=== PATIENT | male | born 1935 | race Caucasian/White ===

== ENCOUNTER 2017-09-19 19:03 | Emergency (ER) | payer MEDICARE, OTHER ==
[~2017-09-19] VITALS: Ht 180.3 cm; Wt 81.0 kg
[~2017-09-19 19:03] MED LIST: COREG3.125 MG PO; JANUMET1 TAB PO; LEVOTHROID75 MCG PO; NOVOLIN 70/30 SC
[2017-09-19 20:05] VITALS: BP 145/77
== END 2017-09-19 20:05 | disposition home or self-care (01) ==
LOC: ED 19:03
PROC: 0HQGXZZ Repair Left Hand Skin, External Approach (ICD-10-PCS; principal; 2017-09-19)
DX: S61.221A Laceration with foreign body of left index finger without damage to nail, initial encounter (principal); W26.0XXA Contact with knife, initial encounter; Y93.G3 Activity, cooking and baking; Y92.009 Unspecified place in unspecified non-institutional (private) residence as the place of occurrence of the external cause

== ENCOUNTER 2017-09-26 11:54 | Emergency (ER) | payer MEDICARE, OTHER ==
[~2017-09-26] VITALS: Ht 180.3 cm; Wt 75.0 kg
[2017-09-26 13:17] VITALS: BP 134/83
== END 2017-09-26 13:17 | disposition home or self-care (01) ==
LOC: ED 11:54
DX: S61.221D Laceration with foreign body of left index finger without damage to nail, subsequent encounter (principal)

== ENCOUNTER 2017-10-18 09:12 | Emergency (ER) | payer MEDICARE, OTHER ==
[~2017-10-18] VITALS: Ht 180.3 cm; Wt 85.0 kg
[2017-10-18 09:59] VITALS: BP 133/77
[2017-10-18] MEDS ORDERED: MEDDOSEPAK PO (10:30)
[2017-10-18] MEDS ORDERED: ULTRAM50 M1 PO (10:30)
== END 2017-10-18 10:40 | disposition home or self-care (01) ==
LOC: ED 09:12
DX: S39.012A Strain of muscle, fascia and tendon of lower back, initial encounter (principal); M54.32 Sciatica, left side; I10 Essential (primary) hypertension; X50.0XXA Overexertion from strenuous movement or load, initial encounter

== ENCOUNTER 2018-06-03 23:48 | Observation (INO) | payer MEDICARE, OTHER ==
[~2018-06-03] VITALS: Ht 180.3 cm; Wt 83.0 kg
[~2018-06-03 23:48] MED LIST changes: -LEVOTHROID75 MCG PO; +LEVOTHYROXIN88 MC1 PO; +MEDDOSEPAK PO; +ULTRAM50 M1 PO
--- NOTE | 2018-06-03 23:49 | NUR ---
PATIENT TO TREATMENT AREA VIA WHEELCHAIR FOR BEDSIDE TRIAGE. PATIENT PLACED ON MONITOR. DENIES SOB OR CHEST PAIN AT PRESENT. AWAAUDELIA GODINEZ.
[2018-06-04 00:45] LABS: HEMATOCRIT 46.1 % (39.0-50.0); HEMOGLOBIN 15.1 g/dl (14.0-18.0); IMMATURE GRANULOCYTES 0.2 % (0.0-5.0); MEAN CELL VOLUME 84.3 fL CALC (80.0-100.0); MEAN CORPUSCULAR HGB 27.6 pG CALC (26.0-32.0); MEAN CORPUSCULAR HGB CONC 32.8 g/L CALC (32.0-36.0); NEUT# 1.85 thou/uL (1.82-7.42); RED BLOOD COUNT 5.47 mill/uL (4.70-6.10); RED CELL DISTRI WIDTH 13.3 % (11.5-15.5)
[2018-06-04 01:05] LABS: URINE BILIRUBIN - DIPSTICK NEGATIVE (NEGATIVE); URINE BLOOD DIPSTICK NEGATIVE (NEGATIVE); URINE CLARITY CLEAR; URINE COLOR YELLOW; URINE GLUCOSE - DIPSTICK >=1000 mg/dL (NEGATIVE); URINE KETONE NEGATIVE (NEGATIVE); URINE LEUK ESTERASE NEGATIVE (NEGATIVE); URINE NITRITE - DIPSTICK NEGATIVE (Negative); URINE PROTEIN - DIPSTICK NEGATIVE (NEG-TRACE); URINE SPECIFIC GRAVITY 1.015; URINE UROBILINOGEN - DIPSTICK 0.2 E.U./dL (0.2)
[2018-06-04 01:09] LABS: ALBUMIN 3.9 g/dL (3.2-5.0); ANION GAP 12 (6-22 (CALC)); BILIRUBIN, TOTAL 0.7 mg/dL (0.0-1.4); BUN 24 mg/dL (8-23); BUN/CREATININE RATIO 20 (12-20 (CALC)); CARBON DIOXIDE 29 mmol/l (22-30); CHLORIDE 103 mmol/l (95-108); CREATININE 1.2 mg/dL (0.7-1.3); GFR 58 ML/MIN (>=60 (CALC)); GFR FOR AFR.AMER. > 60 ML/MIN (>=60 (CALC)); POTASSIUM 4.7 mmol/l (3.5-5.1); SGOT/AST 32 u/l (19-48); SODIUM 140 mmol/l (137-146); TOTAL PROTEIN 6.9 g/dL (6.3-8.2)
[2018-06-04 01:18] LABS: ALKALINE PHOSPHATASE 98 u/l (38-126)
[2018-06-04 01:20] LABS: MYOGLOBIN 145 ng/mL (0 - 121)
--- NOTE | 2018-06-04 02:00 | NUR ---
RESTING COMFORTABLY AWAITING DISPOSITION
--- NOTE | 2018-06-04 03:20 | NUR ---
Admission Note Report Given to: MECHE SHARP Transported by: X Wheelchair Stretcher Transported with: X Nurse Transporter X Patent IV O2 X Sludge Control Attendant
[2018-06-04 03:24] VITALS: BP 187/88
--- NOTE | 2018-06-04 03:24 | NUR ---
PT ARRIVED ON FLOOR VIA WHHELCHAIR. PRESENTED TO UNIT FOR PNEUMONIA/CHF RULE OUT FOR OBSERVATION. PT AOX3 ABLE TO VOICE NEEDS. NO PAIN VOICED. NO DISTRESS NOTED.LUNGS CLEAR. ABDOMEN HYPERACTIVE BOWEL SOUNDS. PT IS AMBULATORY, PT HAS INSULIN PUMPS AND INSULIN METER. PT HAS HEARING AIDS AND WEARS GLASSES. POC DISCUSSED . PT VOICED UNDERSTANDING. IV PATENT TO LEFT AC. BED IN LOWEST POSITION AND CALLLIGHT WITHIN REACH. WILL MONITOR
[2018-06-04 03:55] LABS: TSH, 3RD GENERATION 10.3 uIU/mL (0.47 - 4.68)
[2018-06-04 05:35] VITALS: BP 109/61
--- NOTE | 2018-06-04 06:46 | NUR ---
AZTHROMYCIN ADMINISTERED LATE PENDING ARRIVAL FROM CHARGE NURSE. NO ADVERSE REACTIONS NOTED. PT RESTING IN THE COMFORTABLE. NO PAIN OR DISTRESS NOTED.
--- NOTE | 2018-06-04 07:05 | NUR ---
REPORT RECEIVED FROM MECHE RUIZ; PT LAYING IN BED AWAKE, ALERT, RESP EVEN AND UNLABORED; NO S/S OF DISTRESS NOTED.
[2018-06-04 07:58] VITALS: BP 138/77
--- NOTE | 2018-06-04 08:05 | NUR ---
ASSESSMENT COMPLETED; PT SITTING UP IN BED WAITING FOR SOMEONE TO BRING HIS DENTURES; ALERT ORIENTED X4; RESP EVEN AND UNLABORED; LUNGS SOUND CLEAR, ABD HYPERACTIVE ALL QUADRANTS; RADIAL AND PEDAL PULSES STRONG; PT HAS INSULIN PUMP & METER; HEARING AID BILAT EARS; BRUISED NOTED ON ABD ABOVE INSULIN MONITOR; PT STATED IT'S CAUSED FROM OLD TAPE; IV LAC, SL; CALL ESCUDERO IN REACH. WILL CONTINUE TO MONITOR.
--- NOTE | 2018-06-04 11:30 | NUR ---
PT SITTING UP IN RECLINER NO S/S OF DISTRESS NOTED; NEW IV STARTED #22 LW, TOLERATED WELL; PT EATING LUNCH; CALL LIGHT AND BED ALARM IN PLACE.
[2018-06-04 11:45] VITALS: BP 146/70
--- NOTE | 2018-06-04 12:01 | NUR ---
PT SITING UP IN THE CHAIR EATING LUNCH, NO S/S OF DISTRESS NOTED; CALL ESCUDERO IN REACH. PT VOICED NO CONCERNS;
--- NOTE | 2018-06-04 12:31 | NUR ---
DR REZA AT BED SIDE TO DISCUSS POC
--- NOTE | 2018-06-04 12:32 | NUR ---
DR REZA AWARE OF LABS
--- NOTE | 2018-06-04 12:49 | NUR ---
CRITICAL TROPONIN RESULT RECEIVED FROM LAB, DR REZA NOTIFIED, ROUNDED WITH PT, REQUESTED EKG RESULTS. PT DENIED PAIN, SOB, DISCOMFORT AT THIS TIME, FAMILY MEMBERS VISITING.
[2018-06-04] MEDS ORDERED: LOSARTAN POT50 MG PO (14:01)
[2018-06-04] MEDS ORDERED: NOVOLOG100 UNIT/M IJ (14:12)
[2018-06-04] MEDS ORDERED: FLONASE AL50 MCG/ACT NAB (14:16)
[2018-06-04] MEDS ORDERED: B121000 MCG PO (14:18)
[2018-06-04] MEDS ORDERED: VITAMIN D31000 UNI1 PO (14:19)
--- NOTE | 2018-06-04 15:46 | NUR ---
PT LAYING IN BED AWAKE, MEDICATED PER EMAR; RESP EVEN AND UNLABORED; NO ACUTE CHANGES NOTED; EMPTIED 900CC CLEAR YELLOW URINE; WILL CONTINUE TO MONITOR.
[2018-06-04 16:00] VITALS: BP 164/90
--- NOTE | 2018-06-04 17:20 | NUR ---
ACCU CHECK DONE BY LANDSCAPING CREW LEADER [id number]
--- NOTE | 2018-06-04 18:25 | NUR ---
PT LAYING IN BED RESP EVEN AND UNLABORED; CHRONOMETER ASSEMBLER AT BEDSIDE.
[2018-06-04 19:33] VITALS: BP 141/74
--- NOTE | 2018-06-04 19:49 | NUR ---
PT RESTING IN ROOM DENUIES PAIN OR DISTRESS OR PAIN. ABX ADMINISTERRED. BS 287. PT REFUSES TO TAKE INSULIN FROM NURSE. STATES HE WILL CONTINIE TO USE HIS INSULIN PUMP.BED IN IN LOWEST POSITION. CALL LIGHT WITHIN REACH.
[2018-06-05 00:18] VITALS: BP 105/52
--- NOTE | 2018-06-05 00:50 | NUR ---
Dr loya called to report critical troponin of 0.142. no orders recieved
[2018-06-05 03:57] VITALS: BP 123/68
[2018-06-05 05:15] LABS: HEMATOCRIT 42.4 % (39.0-50.0); HEMOGLOBIN 14.1 g/dl (14.0-18.0); IMMATURE GRANULOCYTES 0.2 % (0.0-5.0); MEAN CORPUSCULAR HGB 27.6 pG CALC (26.0-32.0); MEAN CORPUSCULAR HGB CONC 33.3 g/L CALC (32.0-36.0); NEUT# 2.86 thou/uL (1.82-7.42); RED BLOOD COUNT 5.11 mill/uL (4.70-6.10); RED CELL DISTRI WIDTH 13.3 % (11.5-15.5)
[2018-06-05 05:35] LABS: ALBUMIN 3.4 g/dL (3.2-5.0); BILIRUBIN, TOTAL 0.9 mg/dL (0.0-1.4); CREATININE 1.4 mg/dL (0.7-1.3); MAGNESIUM 1.8 mg/dL (1.6-2.3); POTASSIUM 4.1 mmol/l (3.5-5.1); TOTAL PROTEIN 5.9 g/dL (6.3-8.2)
--- NOTE | 2018-06-05 07:40 | NUR ---
ASSESSMENT IS COMPLETED: IV SITE IS FREE FROM REDNESS OR EDEMA. HR IS REG, PULSES ARE STRONG X4, ABD IS SOFT WITH ACTIVE BS. BREATH SOUNDS ARE CLEAR WITH DIMINISHED IN THE BASES. TELE MONITOR IN PLACE. CONTINUE TO OSEBRVE AND MONITOR.
[2018-06-05 12:00] VITALS: BP 129/72
--- NOTE | 2018-06-05 12:00 | NUR ---
PT IS SITTING UP IN THE CHAIR, NO DISTRESS NOTED. IV SITE IS FREE FROM REDNESS OR EDEMA.
[2018-06-05] MEDS ORDERED: ZITHROMAX500 MG PO (13:45)
--- NOTE | 2018-06-05 14:30 | NUR ---
DISCHARGE INSTRUCTIONS GIVEN AND VERBALIZED UNDERSTANDING. IV SITE DISCONTINUED CATHETER INTACT. NO REDNESS OR EDEMA. PT HAS OWN TRUCK STATING" I DROVE MYSELF HERE AND WILL DRIVE MYSELF HOME:. Discharge instructions given. Patient verbalizes understanding of same. Discharged in stable condition via Ambulatory to Home with *Other. All belongings sent with pt.
== END 2018-06-05 14:30 | disposition home or self-care (01) ==
LOC: ED 23:48 → ED-I 06-04 02:32 → ED 06-04 02:46 → MS2 06-04 02:47
PROVIDERS: Emergency Medicine; Internal Medicine Nephrology; ADMIT Internal Medicine; ATTEND Internal Medicine
DX: I11.0 Hypertensive heart disease with heart failure (principal); J18.9 Pneumonia, unspecified organism; I50.9 Heart failure, unspecified; E11.9 Type 2 diabetes mellitus without complications; E03.9 Hypothyroidism, unspecified; I25.10 Atherosclerotic heart disease of native coronary artery without angina pectoris; I44.0 Atrioventricular block, first degree; I44.7 Left bundle-branch block, unspecified; R74.8 Abnormal levels of other serum enzymes; Z96.41 Presence of insulin pump (external) (internal); Z79.4 Long term (current) use of insulin

== ENCOUNTER 2018-07-22 19:33 | Emergency (ER) | payer MEDICARE, OTHER ==
[~2018-07-22] VITALS: Ht 180.3 cm; Wt 86.2 kg
[~2018-07-22 19:33] MED LIST changes: +B121000 MCG PO; +FLONASE AL50 MCG/ACT NAB; +LOSARTAN POT50 MG PO; +NOVOLOG100 UNIT/M IJ; +VITAMIN D31000 UNI1 PO; +ZITHROMAX500 MG PO
[2018-07-22 19:54] LABS: HEMATOCRIT 53.1 % (39.0-50.0); HEMOGLOBIN 16.6 g/dl (14.0-18.0); IMMATURE GRANULOCYTES 0.3 % (0.0-5.0); MEAN CELL VOLUME 84.4 fL CALC (80.0-100.0); MEAN CORPUSCULAR HGB 26.4 pG CALC (26.0-32.0); MEAN CORPUSCULAR HGB CONC 31.3 g/L CALC (32.0-36.0); NEUT# 4.17 thou/uL (1.82-7.42); RED BLOOD COUNT 6.29 mill/uL (4.70-6.10); RED CELL DISTRI WIDTH 15.7 % (11.5-15.5)
[2018-07-22 20:09] LABS: BILIRUBIN, TOTAL 1.2 mg/dL (0.0-1.4); CREATININE 1.7 mg/dL (0.7-1.3); POTASSIUM 3.9 mmol/l (3.5-5.1)
[2018-07-22 20:12] LABS: URINE BILIRUBIN - DIPSTICK NEGATIVE (NEGATIVE); URINE BLOOD DIPSTICK LARGE (NEGATIVE); URINE COLOR YELLOW; URINE GLUCOSE - DIPSTICK >=1000 mg/dL (NEGATIVE); URINE KETONE TRACE mg/dL (NEGATIVE); URINE LEUK ESTERASE NEGATIVE (Negative); URINE NITRITE - DIPSTICK NEGATIVE (Negative); URINE PROTEIN - DIPSTICK 30 mg/dL (NEG-TRACE); URINE UROBILINOGEN - DIPSTICK 0.2 E.U./dL (0.2)
[2018-07-22 20:13] LABS: TOTAL PROTEIN 7.9 g/dL (6.3-8.2)
[2018-07-22 20:13] LABS: URINE CLARITY CLEAR
[2018-07-22 20:14] LABS: BARBITURATES NEGATIVE (NEGATIVE); COCAINE NEGATIVE (NEGATIVE); METHADONE NEGATIVE (NEGATIVE); OXCYCODONE NEGATIVE (NEGATIVE); TETRAHYDROCANNABIONOL NEGATIVE (NEGATIVE); TRICYLIC ANTIDEPRESSANTS NEGATIVE (NEGATIVE)
[2018-07-22 20:14] LABS: ALBUMIN 4.5 g/dL (3.2-5.0)
[2018-07-22 20:23] LABS: URINE WBC 0-2 WBC/hpf (0-5)
--- NOTE | 2018-07-22 20:27 | NUR ---
RT CALLED TO ER STAT. PATIENT CODED AND MD ORDERED TO PREPARE FOR INTUBATION. MD INTUBATED THE PATIENT. TUBE PLACEMENT WAS VERIFIED BY CO2 DETECTOR, LISTENING TO BREATH SOUND AND THEN X-RAY. PATIENT WAS PLACED ON THE VENT AC MODE, RATE 16, 550 VT, 100% O2 AND 5 PEEP. ABG DRAWN ANALYSED. RESULT IN MEDITECH. RATE INCREASED TO 18 AND FIO2 DROPPED TO 50%.
[2018-07-22 23:30] VITALS: BP 134/66
== END 2018-07-22 23:30 | disposition short-term general hospital (02) ==
LOC: ED 19:33
PROVIDERS: Emergency Medicine
PROC: 0BH17EZ Insertion of Endotracheal Airway into Trachea, Via Natural or Artificial Opening (ICD-10-PCS; principal; 2018-07-22)
PROC: 0T9B70Z Drainage of Bladder with Drainage Device, Via Natural or Artificial Opening (ICD-10-PCS; 2018-07-22)
DX: I46.9 Cardiac arrest, cause unspecified (principal); I50.9 Heart failure, unspecified; J18.9 Pneumonia, unspecified organism; R06.02 Shortness of breath; I10 Essential (primary) hypertension; E11.9 Type 2 diabetes mellitus without complications; Z96.41 Presence of insulin pump (external) (internal); R00.0 Tachycardia, unspecified; R50.9 Fever, unspecified

== ENCOUNTER 2018-09-09 02:19 | Inpatient (IN) | payer MEDICARE, OTHER ==
[2018-09-09] VITALS (13 sets, daily range): BP systolic 93–134; BP diastolic 50–70
[~2018-09-09] VITALS: Ht 180.3 cm; Wt 80.4 kg
[2018-09-09] MEDS ORDERED: AMIODARONE200 MG PO (02:32)
[2018-09-09] MEDS ORDERED: PEPCID20 MG PO (02:32)
[2018-09-09] MEDS ORDERED: SPIRONOLACT25 MG PO (02:33)
[2018-09-09] MEDS ORDERED: CARVEDILOL25 MG PO (02:34)
[2018-09-09] MEDS ORDERED: LASIX 40 MG TAB40 MG PO (02:34)
[2018-09-09] MEDS ORDERED: LISINOPRIL10 M1 PO (02:34)
[2018-09-09] MEDS ORDERED: ATORVASTATIN CA40 MG PO (02:35)
[2018-09-09] MEDS ORDERED: LEVOTHYROXIN100 MC1 PO (02:35)
[2018-09-09 02:51] LABS: IMMATURE GRANULOCYTES 0.1 % (0.0-5.0); MEAN CELL VOLUME 81.6 fL CALC (80.0-100.0); MEAN CORPUSCULAR HGB 26.6 pG CALC (26.0-32.0); MEAN CORPUSCULAR HGB CONC 32.6 g/L CALC (32.0-36.0); NEUT# 4.17 thou/uL (1.82-7.42); RED BLOOD COUNT 4.29 mill/uL (4.70-6.10)
[2018-09-09 02:52] LABS: URINE BILIRUBIN - DIPSTICK NEGATIVE (NEGATIVE); URINE BLOOD DIPSTICK NEGATIVE (NEGATIVE); URINE COLOR YELLOW; URINE GLUCOSE - DIPSTICK NEGATIVE (NEGATIVE); URINE KETONE NEGATIVE (NEGATIVE); URINE LEUK ESTERASE NEGATIVE (NEGATIVE); URINE NITRITE - DIPSTICK NEGATIVE (Negative); URINE PH 5.5 (4.5-8.0); URINE PROTEIN - DIPSTICK NEGATIVE (NEG-TRACE); URINE UROBILINOGEN - DIPSTICK 0.2 E.U./dL (0.2)
[2018-09-09 02:53] LABS: HEMOGLOBIN 11.4 g/dl (14.0-18.0)
[2018-09-09 02:59] LABS: ALBUMIN 3.6 g/dL (3.2-5.0); BILIRUBIN, TOTAL 0.7 mg/dL (0.0-1.4); CREATININE 1.5 mg/dL (0.7-1.3); TOTAL PROTEIN 6.8 g/dL (6.3-8.2)
[2018-09-09 03:01] LABS: POTASSIUM 4.7 mmol/l (3.5-5.1)
[2018-09-10] VITALS (10 sets, daily range): BP systolic 84–144; BP diastolic 41–73
[2018-09-10 04:58] LABS: HEMATOCRIT 34.2 % (39.0-50.0); HEMOGLOBIN 11.1 g/dl (14.0-18.0); IMMATURE GRANULOCYTES 0.2 % (0.0-5.0); MEAN CELL VOLUME 81.6 fL CALC (80.0-100.0); MEAN CORPUSCULAR HGB 26.5 pG CALC (26.0-32.0); MEAN CORPUSCULAR HGB CONC 32.5 g/L CALC (32.0-36.0); NEUT# 2.95 thou/uL (1.82-7.42); RED BLOOD COUNT 4.19 mill/uL (4.70-6.10); RED CELL DISTRI WIDTH 16.9 % (11.5-15.5)
[2018-09-10 05:13] LABS: ALBUMIN 3.1 g/dL (3.2-5.0); ALKALINE PHOSPHATASE 56 u/l (38-126); AMYLASE < 30 u/l (30-110); ANION GAP 15 (6-22 (CALC)); BILIRUBIN, TOTAL 0.7 mg/dL (0.0-1.4); BUN 22 mg/dL (8-23); BUN/CREATININE RATIO 17 (12-20 (CALC)); CARBON DIOXIDE 28 mmol/l (22-30); CHLORIDE 99 mmol/l (95-108); CREATININE 1.3 mg/dL (0.7-1.3); GFR 53 ML/MIN (>=60 (CALC)); GFR FOR AFR.AMER. > 60 ML/MIN (>=60 (CALC)); LIPASE 17 u/l (23-300); MAGNESIUM 1.9 mg/dL (1.6-2.3); SGOT/AST 16 u/l (19-48); SODIUM 136 mmol/l (137-146); TOTAL PROTEIN 5.8 g/dL (6.3-8.2)
[2018-09-11] VITALS (9 sets, daily range): BP systolic 108–137; BP diastolic 51–71
[2018-09-11 04:34] LABS: HEMOGLOBIN 10.5 g/dl (14.0-18.0); IMMATURE GRANULOCYTES 0.2 % (0.0-5.0); MEAN CELL VOLUME 81.6 fL CALC (80.0-100.0); MEAN CORPUSCULAR HGB 26.8 pG CALC (26.0-32.0); MEAN CORPUSCULAR HGB CONC 32.8 g/L CALC (32.0-36.0); NEUT# 3.14 thou/uL (1.82-7.42); RED BLOOD COUNT 3.92 mill/uL (4.70-6.10); RED CELL DISTRI WIDTH 16.6 % (11.5-15.5)
[2018-09-11 04:56] LABS: ALBUMIN 2.9 g/dL (3.2-5.0); ALKALINE PHOSPHATASE 60 u/l (38-126); ANION GAP 14 (6-22 (CALC)); BILIRUBIN, TOTAL 0.8 mg/dL (0.0-1.4); BUN 21 mg/dL (8-23); BUN/CREATININE RATIO 18 (12-20 (CALC)); CARBON DIOXIDE 26 mmol/l (22-30); CHLORIDE 97 mmol/l (95-108); CREATININE 1.2 mg/dL (0.7-1.3); GFR 58 ML/MIN (>=60 (CALC)); GFR FOR AFR.AMER. > 60 ML/MIN (>=60 (CALC)); MAGNESIUM 1.6 mg/dL (1.6-2.3); POTASSIUM 4.6 mmol/l (3.5-5.1); SGOT/AST 13 u/l (19-48); SODIUM 133 mmol/l (137-146); TOTAL PROTEIN 5.4 g/dL (6.3-8.2)
[2018-09-12] VITALS: BP 128/65
[2018-09-12 04:00] VITALS: BP 116/49
[2018-09-12 05:56] LABS: HEMOGLOBIN 11.1 g/dl (14.0-18.0); IMMATURE GRANULOCYTES 0.3 % (0.0-5.0); MEAN CELL VOLUME 81.7 fL CALC (80.0-100.0); MEAN CORPUSCULAR HGB 26.7 pG CALC (26.0-32.0); MEAN CORPUSCULAR HGB CONC 32.6 g/L CALC (32.0-36.0); NEUT# 4.83 thou/uL (1.82-7.42); RED BLOOD COUNT 4.16 mill/uL (4.70-6.10); RED CELL DISTRI WIDTH 16.5 % (11.5-15.5)
[2018-09-12 06:02] LABS: ALKALINE PHOSPHATASE 64 u/l (38-126); ANION GAP 17 (6-22 (CALC)); BUN 28 mg/dL (8-23); BUN/CREATININE RATIO 23 (12-20 (CALC)); CARBON DIOXIDE 24 mmol/l (22-30); CHLORIDE 95 mmol/l (95-108); CREATININE 1.2 mg/dL (0.7-1.3); GFR 58 ML/MIN (>=60 (CALC)); GFR FOR AFR.AMER. > 60 ML/MIN (>=60 (CALC)); MAGNESIUM 1.6 mg/dL (1.6-2.3); POTASSIUM 5.1 mmol/l (3.5-5.1); SGOT/AST 13 u/l (19-48); SODIUM 131 mmol/l (137-146); TOTAL PROTEIN 5.5 g/dL (6.3-8.2)
[2018-09-12 07:00] VITALS: BP 101/52
[2018-09-12 09:31] VITALS: BP 101/48
[2018-09-12 14:35] VITALS: BP 123/61
[2018-09-12 19:50] VITALS: BP 126/75
[2018-09-13 00:10] VITALS: BP 97/55
[2018-09-13 04:05] VITALS: BP 108/49
[2018-09-13 06:11] LABS: HEMATOCRIT 31.9 % (39.0-50.0); HEMOGLOBIN 10.6 g/dl (14.0-18.0); IMMATURE GRANULOCYTES 0.4 % (0.0-5.0); MEAN CORPUSCULAR HGB 27.2 pG CALC (26.0-32.0); MEAN CORPUSCULAR HGB CONC 33.2 g/L CALC (32.0-36.0); NEUT# 5.27 thou/uL (1.82-7.42); RED BLOOD COUNT 3.89 mill/uL (4.70-6.10); RED CELL DISTRI WIDTH 16.3 % (11.5-15.5)
[2018-09-13 06:20] LABS: ALBUMIN 2.9 g/dL (3.2-5.0); BILIRUBIN, TOTAL 0.8 mg/dL (0.0-1.4); CREATININE 1.4 mg/dL (0.7-1.3); MAGNESIUM 1.7 mg/dL (1.6-2.3); POTASSIUM 4.7 mmol/l (3.5-5.1); TOTAL PROTEIN 5.4 g/dL (6.3-8.2)
[2018-09-13 08:29] VITALS: BP 115/55
[2018-09-13 16:47] VITALS: BP 125/62
[2018-09-13 19:35] VITALS: BP 116/64
[2018-09-13 23:50] VITALS: BP 95/49
[2018-09-14 05:20] VITALS: BP 107/60
[2018-09-14 05:28] LABS: CREATININE 1.4 mg/dL (0.7-1.3); MAGNESIUM 1.8 mg/dL (1.6-2.3); POTASSIUM 4.7 mmol/l (3.5-5.1)
[2018-09-14 05:34] LABS: HEMATOCRIT 30.8 % (39.0-50.0); IMMATURE GRANULOCYTES 0.3 % (0.0-5.0); MEAN CELL VOLUME 81.9 fL CALC (80.0-100.0); MEAN CORPUSCULAR HGB 26.6 pG CALC (26.0-32.0); MEAN CORPUSCULAR HGB CONC 32.5 g/L CALC (32.0-36.0); NEUT# 6.48 thou/uL (1.82-7.42); RED BLOOD COUNT 3.76 mill/uL (4.70-6.10); RED CELL DISTRI WIDTH 16.4 % (11.5-15.5)
[2018-09-14 08:27] VITALS: BP 110/63
[2018-09-14 13:36] VITALS: BP 105/55
[2018-09-14 17:22] VITALS: BP 111/66
[2018-09-14 17:56] LABS: CREATININE 1.7 mg/dL (0.7-1.3); MAGNESIUM 1.9 mg/dL (1.6-2.3); POTASSIUM 4.9 mmol/l (3.5-5.1)
[2018-09-14 19:54] VITALS: BP 117/58
[2018-09-15] VITALS: BP 103/50
[2018-09-15 04:00] VITALS: BP 105/51
[2018-09-15 04:41] LABS: HEMATOCRIT 28.9 % (39.0-50.0); HEMOGLOBIN 9.6 g/dl (14.0-18.0); IMMATURE GRANULOCYTES 0.3 % (0.0-5.0); MEAN CORPUSCULAR HGB 26.9 pG CALC (26.0-32.0); MEAN CORPUSCULAR HGB CONC 33.2 g/L CALC (32.0-36.0); NEUT# 6.97 thou/uL (1.82-7.42); RED BLOOD COUNT 3.57 mill/uL (4.70-6.10); RED CELL DISTRI WIDTH 16.3 % (11.5-15.5)
[2018-09-15 05:16] LABS: CREATININE 1.9 mg/dL (0.7-1.3); POTASSIUM 4.5 mmol/l (3.5-5.1)
[2018-09-15 08:45] VITALS: BP 132/67
[2018-09-15 11:28] VITALS: BP 115/54
[2018-09-15 15:05] VITALS: BP 132/71
[2018-09-15 19:10] VITALS: BP 140/73
[2018-09-16] VITALS (7 sets, daily range): BP systolic 106–134; BP diastolic 57–72
[2018-09-16 05:40] LABS: ALBUMIN 2.8 g/dL (3.2-5.0); BILIRUBIN, TOTAL 0.4 mg/dL (0.0-1.4); CREATININE 1.4 mg/dL (0.7-1.3); HEMOGLOBIN 9.8 g/dl (14.0-18.0); IMMATURE GRANULOCYTES 0.5 % (0.0-5.0); MAGNESIUM 1.9 mg/dL (1.6-2.3); MEAN CELL VOLUME 81.5 fL CALC (80.0-100.0); MEAN CORPUSCULAR HGB 26.6 pG CALC (26.0-32.0); MEAN CORPUSCULAR HGB CONC 32.7 g/L CALC (32.0-36.0); NEUT# 6.17 thou/uL (1.82-7.42); RED BLOOD COUNT 3.68 mill/uL (4.70-6.10); RED CELL DISTRI WIDTH 16.5 % (11.5-15.5); TOTAL PROTEIN 5.5 g/dL (6.3-8.2)
[2018-09-16 06:19] LABS: URINE BILIRUBIN - DIPSTICK NEGATIVE (NEGATIVE); URINE BLOOD DIPSTICK NEGATIVE (NEGATIVE); URINE COLOR YELLOW; URINE GLUCOSE - DIPSTICK NEGATIVE (NEGATIVE); URINE KETONE NEGATIVE (NEGATIVE); URINE LEUK ESTERASE NEGATIVE (Negative); URINE NITRITE - DIPSTICK NEGATIVE (Negative); URINE PROTEIN - DIPSTICK NEGATIVE (NEG-TRACE); URINE UROBILINOGEN - DIPSTICK 0.2 E.U./dL (0.2)
[2018-09-16 06:20] LABS: URINE CLARITY CLEAR
[2018-09-17 04:02] VITALS: BP 136/76
[2018-09-17 07:28] VITALS: BP 135/63
[2018-09-17 11:54] VITALS: BP 124/67
[2018-09-17] MEDS ORDERED: DOXYCYCL HYC100 MG PO (12:19)
== END 2018-09-17 15:14 | disposition home or self-care (01) | DRG 291 ==
LOC: ED 02:19 → ED-I 03:11 → ED 03:29 → ICU 03:30 → MS2 09-12 14:32
PROVIDERS: Emergency Medicine; Internal Medicine; Nurse Practitioner Family; ADMIT Internal Medicine Nephrology; ATTEND Internal Medicine Nephrology
PROC: 0W993ZZ Drainage of Right Pleural Cavity, Percutaneous Approach (ICD-10-PCS; principal; 2018-09-11)
DX: I13.0 Hypertensive heart and chronic kidney disease with heart failure and stage 1 through stage 4 chronic kidney disease, or unspecified chronic kidney disease (principal); J18.9 Pneumonia, unspecified organism; I50.23 Acute on chronic systolic (congestive) heart failure; N17.9 Acute kidney failure, unspecified; E87.1 Hypo-osmolality and hyponatremia; J91.8 Pleural effusion in other conditions classified elsewhere; E11.22 Type 2 diabetes mellitus with diabetic chronic kidney disease; N18.3 Chronic kidney disease, stage 3 (moderate); E11.65 Type 2 diabetes mellitus with hyperglycemia; I25.10 Atherosclerotic heart disease of native coronary artery without angina pectoris; E03.9 Hypothyroidism, unspecified; D63.1 Anemia in chronic kidney disease; E86.9 Volume depletion, unspecified; I95.9 Hypotension, unspecified; E78.5 Hyperlipidemia, unspecified; I08.0 Rheumatic disorders of both mitral and aortic valves; I44.0 Atrioventricular block, first degree; I48.0 Paroxysmal atrial fibrillation; I44.7 Left bundle-branch block, unspecified; R00.1 Bradycardia, unspecified; Z79.4 Long term (current) use of insulin; Z96.41 Presence of insulin pump (external) (internal); Z86.74 Personal history of sudden cardiac arrest
CPT/HCPCS: J1650; J3370

== ENCOUNTER → 2018-09-23 | Outpatient (REF) | payer MEDICARE, OTHER ==
[~2018-09-23] MED LIST changes: +AMIODARONE200 MG PO; +ATORVASTATIN CA40 MG PO; +CARVEDILOL25 MG PO; +DOXYCYCL HYC100 MG PO; +LASIX 40 MG TAB40 MG PO; +LEVOTHYROXIN100 MC1 PO; +LISINOPRIL10 M1 PO; +PEPCID20 MG PO; +SPIRONOLACT25 MG PO
[2018-09-23 12:12] LABS: ANION GAP 14 (6-22 (CALC)); BUN 19 mg/dL (8-23); BUN/CREATININE RATIO 15 (12-20 (CALC)); CARBON DIOXIDE 27 mmol/l (22-30); CHLORIDE 95 mmol/l (95-108); CREATININE 1.3 mg/dL (0.7-1.3); GFR 53 ML/MIN (>=60 (CALC)); GFR FOR AFR.AMER. > 60 ML/MIN (>=60 (CALC)); POTASSIUM 4.6 mmol/l (3.5-5.1); SODIUM 131 mmol/l (137-146)
== END | disposition home or self-care (01) ==
LOC: LAB 11:30
PROVIDERS: ATTEND Nurse Practitioner
DX: I50.9 Heart failure, unspecified (principal); I25.10 Atherosclerotic heart disease of native coronary artery without angina pectoris; R05 Cough

== ENCOUNTER → 2018-09-26 | Outpatient (REF) | payer MEDICARE, OTHER | END | disposition home or self-care (01) | LOC: DI 10:34 | PROVIDERS: ATTEND Nurse Practitioner | DX: J18.9 Pneumonia, unspecified organism (principal) ==

== ENCOUNTER 2022-07-31 06:49 | Day surgery (SDC) | payer MEDICARE, OTHER ==
[~2022-07-31] VITALS: Ht 180.3 cm; Wt 76.2 kg
[~2022-07-31 06:49] MED LIST changes: +ASPIRIN81 MG PO; +D3 MAXIMUM5000 UNI1 PO; +EYE VITAMIN PO; +INSULIN PUMP IJ; +JUICE PLUS PO; +[UNRECOGNIZED DRUG - OTHER] PO
[2022-07-31 09:34] VITALS: BP 103/80
[2022-07-31 10:18] LABS: BASO% 0.3 % (0-3); HEMOGLOBIN 12.2 g/dl (14.0-18.0); IMMATURE GRANULOCYTES 0.1 % (0.0-5.0); MEAN CELL VOLUME 87.8 fL CALC (80.0-100.0); MEAN CORPUSCULAR HGB 29.8 pG CALC (26.0-32.0); MEAN CORPUSCULAR HGB CONC 33.9 g/dL CAL (32.0-36.0); MONO% 4.8 % (2-13); NEUT# 6.01 thou/uL (1.82-7.42); NEUT% 82.8 % (42-76); RED BLOOD COUNT 4.1 mill/uL (4.70-6.10); RED CELL DISTRI WIDTH 13.9 % (11.5-15.5)
[2022-07-31 10:35] LABS: CREATININE 1.5 mg/dL (0.7-1.3); POTASSIUM 4.6 mmol/l (3.5-5.1)
== END 2022-07-31 11:05 | disposition home or self-care (01) ==
LOC: ORM 06:49
PROVIDERS: Nurse Anesthetist, Certified Registered; ATTEND Surgery
DX: K40.90 Unilateral inguinal hernia, without obstruction or gangrene, not specified as recurrent (principal); Z53.09 Procedure and treatment not carried out because of other contraindication; E11.65 Type 2 diabetes mellitus with hyperglycemia; I11.0 Hypertensive heart disease with heart failure; I50.9 Heart failure, unspecified; I48.91 Unspecified atrial fibrillation; E03.9 Hypothyroidism, unspecified; Z79.4 Long term (current) use of insulin; Z96.41 Presence of insulin pump (external) (internal)
CPT/HCPCS: C9290

== ENCOUNTER 2022-11-17 00:55 | Emergency (ER) | payer MEDICARE, OTHER ==
[~2022-11-17] VITALS: Ht 180.3 cm; Wt 76.4 kg
[2022-11-17] VITALS (7 sets, daily range): BP systolic 104–144; BP diastolic 50–75
[~2022-11-17 00:55] MED LIST changes: +TRAMADOL HCL50 MG PO
[2022-11-17 01:27] LABS: BASO% 0.4 % (0-3); EOS% 5.4 % (0-8); HEMATOCRIT 34.1 % (39.0-50.0); IMMATURE GRANULOCYTES 0.2 % (0.0-5.0); LYMPH% 20.5 % (15-41); MEAN CORPUSCULAR HGB 28.1 pG CALC (26.0-32.0); MEAN CORPUSCULAR HGB CONC 32.3 g/dL CAL (32.0-36.0); MONO% 8.9 % (2-13); NEUT# 3.13 thou/uL (1.82-7.42); NEUT% 64.6 % (42-76); RED BLOOD COUNT 3.92 mill/uL (4.70-6.10); RED CELL DISTRI WIDTH 14.3 % (11.5-15.5)
[2022-11-17 01:40] LABS: ALBUMIN 3.9 g/dL (3.2-5.0); CREATININE 1.5 mg/dL (0.7-1.3); D-DIMER 1.28 mg/L (0.19-0.60); POTASSIUM 4.2 mmol/l (3.5-5.1); PROTHROMBIN TIME 10.4 SECONDS (9.0-12.5); TOTAL PROTEIN 6.6 g/dL (6.3-8.2)
[2022-11-17 01:45] LABS: BILIRUBIN, TOTAL 0.6 mg/dL (0.2-1.3)
[2022-11-17 03:35] LABS: URINE BILIRUBIN - DIPSTICK NEGATIVE (NEGATIVE); URINE BLOOD DIPSTICK NEGATIVE (NEGATIVE); URINE COLOR YELLOW; URINE GLUCOSE - DIPSTICK 250 mg/dL (NEGATIVE); URINE KETONE NEGATIVE (NEGATIVE); URINE LEUK ESTERASE NEGATIVE (NEGATIVE); URINE PROTEIN - DIPSTICK NEGATIVE (NEG-TRACE); URINE SPECIFIC GRAVITY <=1.005; URINE UROBILINOGEN - DIPSTICK 0.2 E.U./dL (0.2)
[2022-11-17 03:38] LABS: URINE NITRITE - DIPSTICK NEGATIVE (Negative)
== END 2022-11-17 06:20 | disposition home or self-care (01) ==
LOC: ED 00:55
PROVIDERS: Family Medicine
DX: I13.0 Hypertensive heart and chronic kidney disease with heart failure and stage 1 through stage 4 chronic kidney disease, or unspecified chronic kidney disease (principal); I50.23 Acute on chronic systolic (congestive) heart failure; N18.30 Chronic kidney disease, stage 3 unspecified
CPT/HCPCS: Q9967